=== PATIENT | male | born 1990 | race Caucasian/White ===

== ENCOUNTER 2019-05-15 10:58 | Emergency (ER) | payer OTHER, SELFPAY ==
[2019-05-15 11:21] VITALS: BP 138/77; PULSE 81; RESP 19; TEMP 36.7; O2SAT 99; BMI 30.8
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
--- NOTE | 2019-05-15 13:37 | PC.NURSE ---
pt declines having a last set of vital signs taken
== END 2019-05-15 13:38 | disposition home or self-care (01) ==
PROVIDERS: Emergency Provider Nurse Practitioner Family
DX: M25.561 Pain in right knee (principal); M54.5 Low back pain; S13.4XXA Sprain of ligaments of cervical spine, initial encounter; R07.89 Other chest pain; R42 Dizziness and giddiness; R11.2 Nausea with vomiting, unspecified; V49.49XA Driver injured in collision with other motor vehicles in traffic accident, initial encounter
CPT/HCPCS: 70450; 71045; 72070; 72100; 72125; 99282; 99284; J1885

== ENCOUNTER → 2020-07-23 14:37 | Outpatient (CLI) | payer OTHER, SELFPAY ==
--- NOTE | 2020-07-23 14:42 | DI.RAD.S_ITS ---
PROCEDURE: XR CHEST 2V INDICATIONS: Osteoporosis screening TECHNIQUE: 2 views of the chest were acquired. COMPARISON: None. FINDINGS: Surgical changes and devices: None. Lungs and pleura: Lungs are clear. No pleural effusions or pneumothorax. Mediastinum: Mediastinal contours are normal. Heart size is normal. Bones and chest wall: No suspicious bony abnormalities. Soft tissues appear unremarkable. IMPRESSION: No acute cardiopulmonary disease process. Dictated by: Francoise Esqueda MD, PhD on 07/23/2020 at 16:46 Approved by: Francoise Esqueda MD, PhD on 07/23/2020 at 16:46
== END ==
PROVIDERS: PCP Internal Medicine; Referring Provider Internal Medicine; Visit Provider Internal Medicine
DX: S20.20XA Contusion of thorax, unspecified, initial encounter (principal); X58.XXXA Exposure to other specified factors, initial encounter
CPT/HCPCS: 71046

== ENCOUNTER 2024-11-25 02:42 | Emergency (ER) | payer OTHER, SELFPAY ==
[2024-11-25] VITALS (9 sets, daily range): BP systolic 114–148; BP diastolic 55–83; PULSE 63–98; RESP 18–20; TEMP 36.8; O2SAT 91–97; BMI 35.5
--- NOTE | 2024-11-25 03:59 | ED.EXTPRO ---
HPI - Extremity Problem General Chief complaint: Extremity Problem,Nontraumatic Stated complaint: Swollen Knee x7 days Time Seen by Provider: 11/25/24 03:42 Source: patient Mode of arrival: Ambulatory History of Present Illness HPI Narrative: Patient is a 34-year-old male without significant past medical history presenting today with worsening redness and left knee pain. He was seen evaluated on November 20 at outside facility. He reports increasing redness and pain. He had blood work done in the ED which did show white count of 12.4 discussed arthrocentesis but declined. Patient denies any kind of fever chills but his whole left leg is now red and edematous from knee down. He has decreased range of motion in his knee due to swelling and pain. Related Data Home Medications Medication Instructions Recorded Confirmed clonazepam 1 mg tablet 1 - 2 mg PO Q4-6H PRN Anxiety 05/15/19 05/15/19 dextroamphetamine-amphetamine 10 10 mg PO DAILY 05/15/19 05/15/19 mg tablet dextroamphetamine-amphetamine 20 20 mg PO DAILY 05/15/19 05/15/19 mg tablet methadone 10 mg tablet 10 - 20 mg PO Q4-6H PRN pain 05/15/19 05/15/19 Previous Rx's Medication Instructions Recorded cephalexin 500 mg capsule 500 mg PO QID 10 days #40 caps 11/25/24 cephalexin 500 mg capsule 500 mg PO QID 10 days #40 caps 11/25/24 Allergies Allergy/AdvReac Type Severity Reaction Status Date / Time No Known Drug Allergies Allergy Verified 05/15/19 11:21 Patient History Medical History Back pain Social History Smoking Status: Current some day smoker Smoking Status: Current some day smoker Exam Initial Vital Signs Initial Vital Signs: Vital Signs Pulse Rate 98 H 11/25/24 02:47 Blood Pressure 148/83 H 11/25/24 02:47 Pulse Oximetry 97 11/25/24 02:47 GENERAL: Alert 34-year-old male and in no acute distress. HEENT: Head atraumatic,EOMI, pupils reactive, face symmetric, moist mucous membranes CARDIOVASCULAR: Regular rate and rhythm without murmurs, rubs or gallops. RESPIRATORY: Breath sounds equal bilaterally, no wheezes rales or rhonchi. ABDOMEN: Soft, nontender. Normoactive bowel sounds all 4 quadrants. No guarding or rebound. EXTREMITIES: Normal range of motion, no clubbing or edema. Neurovascularly intact Left knee does have some fusion he is able bend it but decreased secondary to fluid NEUROLOGICAL: Alert and oriented x4.Normal gait and speech. Cranial nerves II through XII grossly intact. SKIN: Left leg erythematous knee down to ankle blanchable no streaking, does go around posteriorly Course Orders Ordered: ED Orders 11/25/24 02:58 CBC Auto Diff [Complete Blood Count AUTO DIFF] Stat CMP [Comprehensive Metabolic Panel] Stat CRP [C-Reactive Protein Quant] Stat ESR [Erythrocyte Sedimentation Rate] Stat Lactate (Lactic Acid) Stat Procalcitonin Stat 11/25/24 04:16 Blood Culture Stat Discontinued Medications Ceftriaxone Sodium 1,000 mg/ (Sodium Chloride) 100 mls @ 200 mls/hr IV NOW ONE Stop: 11/25/24 04:06 Last Infusion: 11/25/24 04:58 Dose: Infused Documented By: Admin: 11/25/24 04:21 Dose: 200 mls/hr Documented By: GOLDIE Ketorolac Tromethamine (Ketorolac 30 Mg/Ml Vial) 15 mg IV NOW ONE Stop: 11/25/24 04:06 Last Admin: 11/25/24 04:21 Dose: 15 mg Documented By: GOLDIE Vital Signs Vital signs: Vital Signs - 8 hr 11/25/24 02:47 11/25/24 02:47 11/25/24 02:49 Temperature 98.3 F Pulse Rate 98 H 80 Respiratory Rate 18 Blood Pressure 148/83 H 148/83 H Pulse Oximetry 97 95 Oxygen Delivery Method Room Air 11/25/24 03:00 11/25/24 03:04 11/25/24 03:04 Temperature Pulse Rate 87 88 Respiratory Rate Blood Pressure 144/66 H Pulse Oximetry 96 96 Oxygen Delivery Method 11/25/24 03:30 11/25/24 03:30 11/25/24 04:00 Temperature Pulse Rate 74 72 Respiratory Rate Blood Pressure 114/60 Pulse Oximetry 91 93 Oxygen Delivery Method 11/25/24 04:00 11/25/24 04:30 11/25/24 04:30 Temperature Pulse Rate 67 Respiratory Rate Blood Pressure 116/65 114/63 Pulse Oximetry 95 Oxygen Delivery Method 11/25/24 05:00 11/25/24 05:00 11/25/24 05:30 Temperature Pulse Rate 66 63 Respiratory Rate 18 20 Blood Pressure 121/59 L Pulse Oximetry 95 95 Oxygen Delivery Method Room Air Room Air 11/25/24 05:30 Temperature Pulse Rate Respiratory Rate Blood Pressure 120/55 L Pulse Oximetry Oxygen Delivery Method MDM - Extremity (Nontraumatic) Lab Data 11/25/24 02:58 11/25/24 02:58 Labs: Lab Results 11/25/24 Range/Units 02:58 WBC 11.1 H (4.5-11.0) X10^3/uL RBC 4.41 L (4.5-5.9) X10^6/uL Hgb 13.0 L (13.5-17.5) g/dL Hct 37.8 L (41-53) % MCV 85.7 (80-100) fL MCH 29.4 (26-34) PG MCHC 34.3 (30-36) % RDW 13.4 (11.6-14.8) % Plt Count 391 (150-400) X10^3/uL Neut % (Auto) 72.8 (50-75) % Lymph % (Auto) 15.7 L (25-40) % [place] % (Auto) 9.1 (3-14) % Eos % (Auto) 1.8 L (2-4) % Baso % (Auto) 0.6 (0-2) % Neut # (Auto) 8000 H (5624-6247) /uL Lymph # (Auto) 1700 (5420-1875) /uL [place] # (Auto) 1000 H (0-900) /uL Eos # (Auto) 200 (0-450) /uL Baso # (Auto) 100 (0-100) /uL ESR 65 H (0-15) MM/HR Sodium 137 (137-145) mmol/L Potassium 4.2 (3.4-5.1) mmol/L Chloride 98 (98-107) mmol/L Carbon Dioxide 28 (22-32) mmol/L BUN 15 (9-20) mg/dL Creatinine 1.18 (0.66-1.25) mg/dL Estimated GFR > 60 (>60) mL/min BUN/Creatinine Ratio 12.7 (6-22) Glucose 102 H (70-99) mg/dL Lactate 1.0 (0.7-2.1) mmol/L Calcium 9.3 (8.4-10.2) mg/dL Total Bilirubin 0.6 (0.2-1.3) mg/dL AST 36 (17-59) IU/L ALT 29 (<50) IU/L Alkaline Phosphatase 104 (38-126) U/L C-Reactive Protein 4.9 H (<1.0) mg/dL Total Protein 8.4 H (6.3-8.2) g/dL Albumin 4.6 (3.5-5.0) g/dL Globulin 3.8 (1.7-4.1) g/dL Albumin/Globulin Ratio 1.2 (1.0-2.8) Procalcitonin 0.083 (<0.5) ng/mL MDM Narrative Medical decision making narrative: MDM CC: Left leg redness and pain Complicating co-morbidities: Live car Data collected from: Patient Medical records reviewed: ED record from [facility] 11/22/2024 reviewed Differential considered: Cellulitis bursitis sepsis septic joint Exam documented above, pertinent findings include: Erythema of skin from knee to ankle blanchable swelling of skin decreased range of motion likely secondary to edema. Lab Test results independently reviewed as above. Pertinent findings: WBC 11.1 lactate 1.0 Procalcitonin 0.083 ESR 65 CRP 4.9 Electrolytes within normal limits Blood cultures pending Treatments: Rocephin torn Re-evaluations: Patient sleeping pain seems to be improved Discussion: Patient is a 34-year-old male who presents today with worsening left knee and leg pain. Exam does show significant erythema and some edema. It is warm to touch mild leukocytosis of 11 elevated ESR and CRP but a normal lactate. I do suspect he has more of a cellulitis rather than a septic knee. He was afebrile leukocytosis has actually improved previously. It was previously 12.4. Vitals are stable here. He was able to ambulate out without difficulty. Started him on Keflex recommended if symptoms worsen then to return to ED. reports that he was able to keep it clean and dry it does sound like he lives in his car Discharge Plan Departure Patient Disposition: Home Clinical Impression: Cellulitis Instructions: DI for Cellulitis -- Adult Activity Restrictions/Additional Instructions: *You have been diagnosed with left leg cellulitis *What to do: At this time elevate leg as much as possible ice if possible, continue to walk and move around *Continue to take medications as directed Keflex 500 mg 4 times a day for 10 days *Follow up with your primary care provider in 2-3 days or call [phone] *Return to ER if you should have increasing redness going up you are thigh, pain swelling fever [or] any new, worsening or concerning symptoms Prescriptions: New cephalexin 500 mg capsule 500 mg PO QID 10 Days Qty: 40 0RF cephalexin 500 mg capsule 500 mg PO QID 10 Days Qty: 40 0RF No Action methadone 10 mg tablet 10 - 20 mg PO Q4-6H PRN (Reason: pain) Patient Comments: take 1 to 2 tablets by mouth every 4 to 6 hours if needed for pain dextroamphetamine-amphetamine 10 mg tablet 10 mg PO DAILY Patient Comments: take 1 tablet by mouth once daily clonazepam 1 mg tablet 1 - 2 mg PO Q4-6H PRN (Reason: Anxiety) Patient Comments: take 1 to 2 tablets by mouth every 4 to 6 hours if needed dextroamphetamine-amphetamine 20 mg tablet 20 mg PO DAILY Patient Comments: take 1 tablet by mouth once daily Referrals: Sarah Jorge MD [Primary Care Provider] - Stand Alone Forms: Patient Portal/API/Survey
[2024-11-25] MEDS: KETOROLAC 30 MG/ML VIAL 15 MG IV (04:21)
[2024-11-25] MEDS: cefTRIAXone 1,000 MG in SODIUM CHLORIDE 0.9% 100 ML 200 MG IV (04:21)
[2024-11-25 04:37] LABS: Add Manual Diff / Slide Review NO; Basophils Absolute Auto 100 /uL (0-100); Basophils Percent Auto 0.6 % (0-2); Eosinophils Absolute Auto 200 /uL (0-450); Eosinophils Percent Auto 1.8 % (2-4); Hematocrit 37.8 % (41-53); Lymphocytes Absolute Auto 1700 /uL (1100-4500); Lymphocytes Percent Auto 15.7 % (25-40); Mean Corpuscular HGB Conc 34.3 % (30-36); Mean Corpuscular Hemoglobin 29.4 PG (26-34); Mean Corpuscular Volume 85.7 fL (80-100); Monocytes Absolute Auto 1000 /uL (0-900); Monocytes Percent Auto 9.1 % (3-14); Neutrophils Absolute Auto 8000 /uL (1500-7000); Neutrophils Percent Auto 72.8 % (50-75); Platelet Count 391 X10^3/uL (150-400); Red Blood Cell Count 4.41 X10^6/uL (4.5-5.9); Red Cell Distribution Width 13.4 % (11.6-14.8); White Blood Cell Count 11.1 X10^3/uL (4.5-11.0)
[2024-11-25 04:47] LABS: Alanine Aminotransferase 29 IU/L (<50); Albumin 4.6 g/dL (3.5-5.0); Albumin Globulin Ratio 1.2 (1.0-2.8); Alkaline Phosphatase 104 U/L (38-126); Aspartate Aminotransferase 36 IU/L (17-59); BUN Creatinine Ratio 12.7 (6-22); Bilirubin Total 0.6 mg/dL (0.2-1.3); Blood Urea Nitrogen 15 mg/dL (9-20); C-Reactive Protein Quant 4.9 mg/dL (<1.0); Calcium 9.3 mg/dL (8.4-10.2); Carbon Dioxide 28 mmol/L (22-32); Chloride 98 mmol/L (98-107); Estimated Glomerular Filt Rate > 60 mL/min (>60); Globulin 3.8 g/dL (1.7-4.1); Glucose 102 mg/dL (70-99); HEMOLYSIS < 15 (0-50); Potassium 4.2 mmol/L (3.4-5.1); Sodium 137 mmol/L (137-145); Total Protein 8.4 g/dL (6.3-8.2)
[2024-11-25 05:01] LABS: Erythrocyte Sedimentation Rate 65 MM/HR (0-15); Procalcitonin 0.083 ng/mL (<0.5)
--- NOTE | 2024-11-25 05:46 | PC.NURSE ---
Pt resting quielty with eyes closed, resps even and not labored. No distress noted at this time. Pt does not initially respond to RN when entering the room and speaking pt name. RN has to raise voice slightly and say pt name again. Pt startles but does not open eyes. When asked about current pain patient states It's tolerable. RN asks Is it better, worse, or the same? Pt states It's the same. RN confirms that pain has not changed after pain meds. Pt states No.
== END 2024-11-25 06:02 | disposition home or self-care (01) ==
PROVIDERS: Emergency Provider Emergency Medicine; PCP Internal Medicine
DX: L03.116 Cellulitis of left lower limb (principal)
CPT/HCPCS: 80053; 83605; 84145; 85025; 85651; 86140; 87040; 96365; 96375; 99283; 99284; J0696; J1885